=== PATIENT | female | born 1995 | race Hispanic/Latino ===

== ENCOUNTER 2021-07-28 16:39 | Emergency (ER) | payer OTHER, SELFPAY ==
[2021-07-28] MEDS ORDERED: Fentanyl 100 MCG/2 ML VIAL ONE (17:28)
[2021-07-28] MEDS ORDERED: Ondansetron PF 4 MG/2 ML Vial ONE (18:14)
[2021-07-28] MEDS ORDERED: Morphine 4 MG/ML VIAL ONE ×2 (18:14→19:26)
[2021-07-28] MEDS ORDERED: Ketorolac Tromethamine 30 MG/ML VIAL ONE (19:26)
== END 2021-07-28 19:15 | disposition home or self-care (01) ==
LOC: CSHERS 16:39
DX: S02.32XA Fracture of orbital floor, left side, initial encounter for closed fracture (principal); S22.20XA Unspecified fracture of sternum, initial encounter for closed fracture; V43.52XA Car driver injured in collision with other type car in traffic accident, initial encounter
CPT/HCPCS: 70450; 70486; 71260; 72125; 74177; 96374; 96375; 96376; J1885; J2270; J2405; J3010